=== PATIENT | female | born 1965 | race Caucasian/White ===

== ENCOUNTER 2019-02-02 22:00 | Inpatient (IN) ==
[2019-02-02] MEDS ORDERED: NS 1,000 ML IV ONE (22:20)
[2019-02-02] MEDS ORDERED: TYLENOL PO ONE (22:21)
[2019-02-02] MEDS ORDERED: ZOFRAN IV ONE (22:34)
[2019-02-02 23:03] LABS: BASO# 0.04 X1000 (0.0-0.2); BASO% 0.3 % (0.0-0.8); EOS# 0.03 X1000 (0.0-0.7); EOS% 0.2 % (0.0-10.0); HEMOGLOBIN 15.2 g/dL (12.0-16.0); IMM GRAN# 0.23 X1000 (0.0-0.04); IMM GRAN% 1.6 % (0.0-0.5); LYMPH# 1.44 X1000 (1.2-3.4); LYMPH% 10.1 % (20.5-51.1); MCHC 32.3 g/dL (33-37); MCV 89.7 FL (81-99); MONO# 0.95 X1000 (0.11-0.59); MONO% 6.6 % (1.7-9.3); MPV 10.2 FL (7.4-10.4); NEUT# 11.62 X1000 (1.4-6.5); NEUT% 81.2 % (42.2-75.2); PLT 207 X1000 (130-400); RBC 5.24 XMIL (4.2-5.4); RDW 14.1 % (11.5-14.5); WBC 14.31 X1000 (4.8-10.8)
[2019-02-02 23:25] LABS: AMYLASE 60 U/L (20-200); LIPASE 14 U/L (13-60)
[2019-02-02 23:27] LABS: ALB/GLOB RATIO 1.3; ALBUMIN 4.4 g/dL (3.5-5.0); CREATININE 1.1 mg/dL (0.5-0.9); MAGNESIUM 1.8 mg/dL (1.5-2.7); TOTAL BILIRUBIN 0.41 mg/dL (0.20-1.00); TOTAL PROTEIN 7.7 g/dL (6.3-8.3)
[2019-02-03] MEDS ORDERED: NS 1,000 ML IV ONE (00:47)
[2019-02-03] MEDS ORDERED: PERCOCET-5 PO ONE (02:01)
--- NOTE | 2019-02-03 02:12 | PROVIDER DOCUMENTATION ---
This chart was entered by Katalina Bermeo Scribe, acting as scribe for Salena Rhoades MD. HPI-Abdominal Pain/GI Problem - General Chief Complaint: Nausea/Vomiting Stated Complaint: BOWEL OBSTRUCTION, VOMITING Time Seen by Provider: 02/02/19 22:17 Source: patient Allergies/Adverse Reactions: Patient Allergies Allergy/AdvReac Type Severity Reaction Status Date / Time povidone-iodine Allergy Severe SWELLING Verified 02/03/19 00:39 [From Betadine] soap * [From Betadine] Allergy Severe SWELLING Verified 02/03/19 00:39 adhesive Allergy Intermediate SWELLING Verified 02/03/19 00:39 ciprofloxacin [From Cipro] Allergy Intermediate HEADACHE/VO Verified 02/03/19 00:39 MITING ciprofloxacin HCl * Allergy Intermediate HEADACHE/VO Verified 02/03/19 00:39 [From Cipro] MITING codeine Allergy Intermediate VOMITING Verified 02/03/19 00:39 diazepam [From Valium] Allergy Intermediate VOMITING Verified 02/03/19 00:39 hydrocodone bitartrate * Allergy Intermediate VOMITING Verified 02/03/19 00:39 [From Lortab] metoclopramide HCl * Allergy Intermediate Muscle Verified 02/03/19 00:39 [From Reglan] Jerks morphine Allergy Intermediate VOMITING Verified 02/03/19 00:39 naproxen sodium * Allergy Intermediate NAUSEA/VOMI Verified 02/03/19 00:39 [From Aleve] TING pramipexole di-HCl * Allergy Intermediate SWELLING Verified 02/03/19 00:39 [From Mirapex] Sulfa (Sulfonamide Allergy Intermediate VOMITING Verified 02/03/19 00:39 Antibiotics) [Sulfa(Sulfonamide Antibiotics)] cephalexin monohydrate * Allergy Mild RASH Verified 02/03/19 00:39 [From Keflex] doxycycline Allergy Mild RASH Verified 02/03/19 00:39 nitrofurantoin Allergy Mild RASH Verified 02/03/19 00:39 [From Macrobid] nitrofurantoin Allergy Mild RASH Verified 02/03/19 00:39 macrocrystalline * [From Macrobid] promethazine HCl * Allergy Mild ITCHING Verified 02/03/19 00:39 [From Phenergan] oxybutynin Allergy Unknown RASH Verified 02/03/19 00:39 fentanyl Allergy Unknown Verified 02/03/19 00:39 levofloxacin [From Levaquin] AdvReac Unknown Verified 02/03/19 00:39 piperacillin [From Zosyn] AdvReac Unknown Verified 02/03/19 00:39 tazobactam [From Zosyn] AdvReac Unknown Verified 02/03/19 00:39 Home Medications: Home Medication List Medication Instructions Recorded Confirmed Last Taken Type Levothyroxine [Synthroid] 50 microgm PO QAM 08/22/13 02/02/19 11/02/18 04:30 History Metoprolol Tartrate 50 mg PO QAM 08/22/13 02/02/19 11/02/18 04:30 History Pantoprazole [Protonix] 40 mg PO QAM 08/22/13 02/02/19 11/02/18 04:30 History Amlodipine [Norvasc] 2.5 mg PO HS 01/22/16 02/02/19 11/01/18 22:00 History - History of Present Illness-ABD Nature of Presenting Problems: 53 yof co vomiting starting at [id number], was vomiting up yesterday's food. pt states hard to eat and drink. pt has hx of bowel obstruction and adhesion. pt states "feels like someone turning something in abd." pain is 5/10 in er but pain high when vomiting. pt was tx at [facility] but states they would not fix her problems. pt had sx at [facility] for obstruction and adhesion. pt has hx of htn, ra, thyroid disorder and clotting disorder. pt denies headache, dysuria, cp, and sob. Abdominal Pain Onset Location: reports: epigastric Review of Systems - Adult - REVIEW OF SYSTEMS - ADULT Constitutional: reports: no symptoms reported. denies: chills, fever Eyes: reports: no symptoms reported Ears, Nose, Mouth & Throat: reports: no symptoms reported Cardiovascular: reports: no symptoms reported. denies: chest pain Respiratory: reports: no symptoms reported. denies: shortness of breath Gastrointestinal: reports: see HPI, abdominal pain (epigastric), poor appetite, vomiting. denies: hematemesis, constipation, diarrhea, rectal bleeding Genitourinary: reports: no symptoms reported. denies: dysuria Musculoskeletal: reports: no symptoms reported Integumentary: reports: no symptoms reported Neurological: reports: no symptoms reported Psychiatric: reports: no symptoms reported Endocrine: reports: no symptoms reported Hematologic/Lymphatic: reports: no symptoms reported Allergic/Immunologic: reports: no symptoms reported All Other Systems: Reviewed and Negative Past History - Adult - PAST MEDICAL HISTORY-ADULT Review of Records: reports: Old Records Reviewed, Nursing Assessment Review, Medications Reviewed, Social history reviewed & non-contributory. Major Childhood Illnesses: reports: denies history Cardiovascular: reports: CAD, HTN Respiratory: reports: denies history Gastrointestinal: reports: colitis, GERD Obstetrical/Gynecological: reports: denies history Genitourinary: reports: kidney disease (Watching kidney function) Musculoskeletal: reports: arthritis Neurological: reports: Seizures/Epilepsy (pseudoseizures) Endocrine/Immune: reports: lupus, thyroid disorder (hypothyroidism) Other Conditions: reports: other (thrombophilia) - PRIOR SURGERIES/PROCEDURES Surgical/Procedure History: reports: appendectomy, cholecystectomy (carpel tunnel, bladder tuck, small bowel resection, neck fusion, lipoma R), hysterectomy, , bowel surgery (small bowel resection), back/neck (neck fusion), other (carpel tunnel, bladder tac, lymphoma removed) - IMMUNIZATION STATUS Childhood Immunizations: NUTD Flu Vaccine: NUTD - FAMILY HISTORY Family History: cancer (colon, brain), other (colitis) - SOCIAL HISTORY Smoking: non-smoker Substance Use: none/never Physical Exam-General - PHYSICAL EXAM-ADULT Initial Vital Signs Reviewed: Yes - CONSTITUTIONAL General Appearance: appears well, alert, no apparent distress - EYES Eyes: PERRL/EOMI - HEAD, EARS, NOSE, MOUTH & THROAT HENMT: normocephalic/atraumatic, moist mucous membranes, normal ENT inspection - NECK Neck: non-tender, full range of motion, supple, normal inspection - RESPIRATORY Respiratory: chest non-tender, lungs clear, normal breath sounds - CARDIOVASCULAR Cardiovascular: normal peripheral pulses, regular rate, rhythm - GASTROINTESTINAL (ABDOMEN) Abdominal Exam: normal bowel sounds, soft, no organomegaly, no pulsatile mass, tenderness (epigastric tender to palp). negative: non tender, guarding, rigid, rebound Progress - PLAN OF CARE/RESULTS Progress/Plan/Lab Results: Vital Signs - 8 hr 02/02/19 22:08 Temperature 97.9 F Pulse Rate 79 Respiratory Rate 18 Blood Pressure 134/85 O2 Sat by Pulse Oximetry 98 Laboratory Results - last 24 hr 02/02/19 22:35 WBC 14.31 H RBC 5.24 Hgb 15.2 Hct 47.0 MCV 89.7 MCH 29.0 MCHC 32.3 L RDW Std Deviation 14.1 Plt Count 207 MPV 10.2 Immature Gran % (Auto) 1.6 H Neut % (Auto) 81.2 H Lymph % (Auto) 10.1 L [place] % (Auto) 6.6 Eos % (Auto) 0.2 Baso % (Auto) 0.3 Immature Gran # (Auto) 0.23 H Neut # (Auto) 11.62 H Lymph # (Auto) 1.44 [place] # (Auto) 0.95 H Eos # (Auto) 0.03 Baso # (Auto) 0.04 Orders Category Date Time Status NPO Diet 02/02/19 22:21 Active ABDOMEN FLAT/UPRIGHT [RAD] Stat Exams 02/02/19 22:[address] ABD/PELVIS W/IV CONT ONLY [CT] Stat Exams 02/02/19 23:12 Ordered AMYLASE [CHEM] Stat Lab 02/02/19 22:35 Received CBC WITH ELECTRONIC DIFF [HEME] Stat Lab 02/02/19 22:35 Completed COMPREHENSIVE METABOLIC PANEL [CHEM] Stat Lab 02/02/19 22:35 Received LACTATE, PLASMA [CHEM] Stat Lab 02/02/19 22:20 Uncollected LIPASE [CHEM] Stat Lab 02/02/19 22:35 Received MAGNESIUM [CHEM] Stat Lab 02/02/19 22:35 Received URINALYSIS W/POSS RFLX CULT [URINALYSIS] Stat Lab 02/02/19 22:20 Uncollected 0.9% Sodium Chloride Inj [Ns] 1,000 ml Med 02/02/19 22:20 Discontinued IV 999 mls/hr Acetaminophen [Tylenol] Med 02/02/19 22:21 Discontinued 650 mg PO NOW ONE Ondansetron [Zofran] Med 02/02/19 22:34 Discontinued 4 mg IV NOW ONE Result Diagrams: 02/02/19 22:35 02/02/19 22:35 - CT/MRI 1 CT Study: Abdomen (IMPRESSION: FOCAL DILATED LOOP OF SMALL BOWEL JUST PROXIMAL TO ANASTOMOSIS IN THE MID ABDOMEN MEASURES 4.1 CM. A COMPONENT OF OBSTRUCTION MAY BE PRESENT. SIMILAR APPEARANCE OF THICKENING OF THE DISTAL COLON AND RECTUM WHICH CAN BE SEEN WITH PROCTOCOLITIS. GARY QUINTANA MD.) Departure - Departure Date of Disposition Decision: 02/03/19 Time of Disposition Decision: 02:05 DIAGNOSIS: Small bowel obstruction, Proctocolitis Disposition: ADMITTED INPATIENT 09 Certified Medical Emergency: Emergent Condition: Stable Referrals and Follow-Ups: Jessie Huang MD [Primary Care Provider] - - Critical Care Note This patient required my direct & personal management of CC.: No Attestation - Physician/ ELVIE Attestation Patient care was provided by Advanced Practice Provider:: No The physician spent face to face time with patient:: Yes Advanced Practice Provider documentation review:: Supervising physician onsite and consulted in the evaluation and care of this patient. The physician did have a face to face encounter with the patient. This chart was documented by the indicated scribe, (Katalina Bermeo, Jazmin) and accurately reflects the services I performed and decisions made by me, Odilon Rhoades MD, as attested by the provider's signature.
--- NOTE | 2019-02-03 04:01 | HISTORY AND PHYSICAL ---
PRIMARY CARE PHYSICIAN: Dr. Jessie Huang. CHIEF COMPLAINT: Abdominal pain x2 days. HISTORY OF PRESENT ILLNESS: A 53-year-old female with a history of hypothyroidism, RA, thrombophilia, and iron-deficiency anemia, who presented to emergency department with 2 days history of worsening abdominal pain. The patient described it as sharp, and states that she was having nausea, vomiting with it. She states that she could not hold any food down over the past several days. She was evaluated in the emergency department. She had imaging done which did show small bowel obstruction, as per ER physician. Due to these presenting findings it was thought that she would need hospitalization for further management. At the time of my examination, she had denied any headache, fever, chills, chest pain, shortness of breath, or any recent weight changes, but complained of abdominal pain. PAST MEDICAL HISTORY: Includes hypothyroidism, RA, thrombophilia, iron-deficiency anemia. PAST SURGICAL HISTORY: Bilateral feet surgery, colon resection, cholecystectomy, appendectomy, hysterectomy, cervical fusion. ALLERGIES: Povidone and iodine, sulfa, adhesives, and ciprofloxacin. CURRENT MEDICATIONS INCLUDE: 1. Amlodipine 2.5 mg p.o. at bedtime. 2. Levothyroxine 50 mcg p.o. q.a.m. 3. Metoprolol 50 mg p.o. q.a.m. 4. Pantoprazole 40 mg p.o. every morning. SOCIAL HISTORY: She denies any history of smoking, alcohol or illicit drug use. FAMILY HISTORY: Positive for coronary disease in Father. REVIEW OF SYSTEMS: Fourteen-point review of system as listed in HPI. Other systems negative. PHYSICAL EXAMINATION: GENERAL: Cooperative, friendly female, she is resting comfortably now. VITAL SIGNS: Temperature 97.9 degrees, pulse 79, respiration 18, blood pressure 134/85. HEENT: Atraumatic, normocephalic. Extraocular movements intact. PERRLA. NECK: Supple. CHEST: Clear to auscultation. CARDIOVASCULAR: Regular rhythm. ABDOMEN: Soft, positive bowel sounds. EXTREMITIES: No edema. NEUROLOGIC: She is awake, alert, oriented x3. : No bladder distention. SKIN: Warm. LABORATORIES AND STUDIES: Sodium 144, potassium 4.0, chloride 101, CO2 is 28, BUN is 17, creatinine is 1.1. Glucose is 122. WBCs 14.31, hemoglobin 15.2, hematocrit 47.0, platelets 207,000. ASSESSMENT: This is a 53-year-old female with a history of hypothyroidism, rheumatoid arthritis, thrombophilia, iron-deficiency anemia, and hypertension, who had presented to emergency department with 2 days history of worsening abdominal pain with nausea, vomiting. She was evaluated in the emergency department, she had imaging done which did show a bowel obstruction. Subsequently, she will require admission for further management. ASSESSMENT: 1. Abdominal pain. 2. Suspect a bowel obstruction. 3. Rheumatoid arthritis. 4. Thrombophilia. 5. Hypertension. PLAN: 1. We will admit patient to medical floor with telemetry. 2. Keep patient NPO. Continue with supportive treatment with IV fluids, antiemetics, pain control. 3. We will consult General Surgery. 4. We will hold her home medications for now. 5. We will continue patient on DVT prophylaxis with her home medication. 6. We will continue to follow and reassess, make further recommendation as per her clinical course. cc: Loco Magdaleno MD
--- NOTE | 2019-02-03 05:30 | Diag Imaging Result Doc PS360 ---
EXAM: ABDOMEN FLAT/UPRIGHT HISTORY: HX OF OBSTRUCTION; PRESENT WITH ABD PAIN TECHNIQUE: Flat and upright, two views COMPARISON: None. FINDINGS: No free air beneath the diaphragm. The gallbladder has been removed. Mild scoliosis. Mildly distended small bowel loops in the mid left abdomen. There are sutures in the lower right abdomen. There are several pelvic phleboliths. IMPRESSION: Questionable early or partial small bowel obstruction. Electronically signed by Kyle Connelly 02/03/2019 5:27 AM
[2019-02-03] MEDS: ZOFRAN IV PRN ×2 (07:00→20:21)
[2019-02-03] MEDS: NS 1,000 ML IV SCH ×2 (07:00→16:52)
--- NOTE | 2019-02-03 07:26 | Diag Imaging Result Doc PS360 ---
EXAM: CT ABD/PELVIS W/IV CONT ONLY HISTORY: HX OF MULTIPLE OPEN LAP FOR BOWEL OBSTRUCTION AND TECHNIQUE: CT abdomen and pelvis with intravenous contrast COMPARISON: 02/15/2018 FINDINGS: The gallbladder has been removed. There is fatty infiltration of the liver. Normal spleen, pancreas, adrenal glands, and kidneys. No aortic aneurysm. Mild atherosclerosis. No hydronephrosis. There are sutures in the mid to right abdomen. The small bowel loops just proximal to the anastomotic site are dilated and filled with debris. A small amount of stool is found throughout the colon. Questionable mild thickening to the distal colon. The uterus has been removed. No pelvic mass. Urinary bladder is moderately distended and is normal. IMPRESSION: 1.Possible partial small bowel obstruction near the anastomosis 2.Mild thickening to the distal colon likely due to incomplete distention rather than colitis on the current study 3.Fatty infiltration of the liver 4.Cholecystectomy 5.Hysterectomy 6.A pulmonary report was given at 1:14 AM This exam was performed using automated exposure control, adjustment of mA or kV according to patient size, and/or use of iterative reconstruction technique. Electronically signed by Kyle Connelly 02/03/2019 7:24 AM
--- NOTE | 2019-02-03 10:19 | GENERAL SURGERY CONSULTATION ---
DATE: 02/03/2019 REASON FOR CONSULTATION: Small-bowel obstruction. HISTORY OF PRESENT ILLNESS: This is a 53-year-old female who has had multiple abdominal operations for adhesions and obstructions in the past, who presented to the hospital with a 2-day history of abdominal pain, distention, nausea, and vomiting. She did have some small bowel movements yesterday. She denies exacerbating or relieving factors as well as fever, chills, chest pain, shortness of breath, weight changes. PAST MEDICAL HISTORY: Hypothyroidism, rheumatoid arthritis, thrombophilia, iron deficiency anemia, multiple bowel obstructions. PAST SURGICAL HISTORY: x2, diagnostic laparoscopy with lysis of adhesions, multiple exploratory laparotomies with lysis of adhesions including a small-bowel resection at 1 point. Interestingly, her medical record reports cholecystectomy and appendectomy, but she did not report this to me. ALLERGIES: Povidone, iodine, adhesives, ciprofloxacin, codeine, Valium, Lortab, Reglan, naproxen, morphine, Mirapex, sulfa, Keflex, doxycycline, nitrofurantoin, Phenergan, oxybutynin, fentanyl, Levaquin, Zosyn. HOME MEDICATIONS: Norvasc, Synthroid, Antivert, metoprolol, Protonix. SOCIAL HISTORY: Negative for tobacco, alcohol, or illicit drug use. FAMILY HISTORY: Positive for coronary artery disease. REVIEW OF SYSTEMS: Ten systems reviewed and negative except as noted above. PHYSICAL EXAMINATION: Vital Signs: Temperature 97.7 degrees, pulse 52, respirations 16, blood pressure 134/74, O2 saturation 97%. General: She is alert and oriented x4. She is well developed, well nourished, looks her stated age. HEENT: Normocephalic, atraumatic. Extraocular muscles intact. Pupils equal, round, and reactive to light. Sclerae anicteric. Moist mucous membranes. Neck: Supple, no thyromegaly. Cardiovascular: Regular rate and rhythm. Respiratory: Bilateral equal breath sounds. No work of breathing. Gastrointestinal: Soft, nondistended, mildly tender throughout. No rebound or guarding. No organomegaly or mass. She has a well-healed midline incision and Pfannenstiel incision. No hernias appreciated. Extremities: No clubbing, cyanosis, or edema. Skin: Warm and dry. No rash. Musculoskeletal: Moves all extremities equally and well. LABORATORY DATA: White blood cell count 14,000, hemoglobin 15, hematocrit 47, platelet count 207,000. Electrolytes reviewed and notable for creatinine of 1.1. IMAGING: An abdominal x-ray shows questionable early or partial small-bowel obstruction with some mildly distended small bowel loops in the left mid abdomen. Abdominal pelvis CT scan shows some dilated small bowel loops proximal to an anastomosis. There is a small amount of stool in the colon with questionable mild thickening to the distal colon. ASSESSMENT AND PLAN: A 53-year-old female with recurrent partial small-bowel obstruction, likely secondary to adhesive disease versus anastomotic stricture. She looks stable. I do not think she needs an NG tube at this time. I would keep her on mostly bowel rest and ice chips and IV fluids and repeat physical exam and imaging in the morning. cc: Gregg Tirado MD
[2019-02-03] MEDS ORDERED: MINERAL OIL PO ONE (10:45)
[2019-02-03 10:48] LABS: URINE SOURCE CLEAN CATCH
[2019-02-03 11:20] LABS: BILIRUBIN URINE NEGATIVE (NEGATIVE); BLOOD URINE NEGATIVE (NEGATIVE); COLOR STRAW; GLUCOSE URINE NEGATIVE (NEGATIVE); KETONE URINE NEGATIVE (NEGATIVE); LEUKOCYTES URINE NEGATIVE (NEGATIVE); NITRITE URINE NEGATIVE (NEGATIVE); PROTEIN URINE NEGATIVE (NEGATIVE); SP GRAVITY URINE 1.025; TURBIDITY URINE CLEAR (CLEAR); UROBILINOGEN URINE NORMAL (NORMAL)
[2019-02-03 11:22] LABS: UR EPITHELIAL CELLS <10 /HPF (<10); URINE BACTERIA NEGATIVE /HPF; URINE RBC <10 /HPF (<10); URINE WBC <10 /HPF (<10)
[2019-02-03] MEDS ORDERED: DILAUDID IV ONE (15:34)
[2019-02-03] MEDS: NORVASC PO SCH (20:20)
[2019-02-03] MEDS: MILK OF MAGNESIA PO SCH (20:25)
[2019-02-04] MEDS ORDERED: DILAUDID IV ONE (02:18)
[2019-02-04] MEDS: NS 1,000 ML IV SCH (03:04)
[2019-02-04] MEDS: ZOFRAN IV PRN ×4 (03:07→21:48)
[2019-02-04] MEDS: SYNTHROID PO SCH ×2 (05:52→07:45)
[2019-02-04 06:34] LABS: BASO# 0.04 X1000 (0.0-0.2); BASO% 0.5 % (0.0-0.8); EOS# 0.08 X1000 (0.0-0.7); EOS% 0.9 % (0.0-10.0); HEMATOCRIT 42.7 % (37.0-47.0); HEMOGLOBIN 13.6 g/dL (12.0-16.0); IMM GRAN# 0.13 X1000 (0.0-0.04); IMM GRAN% 1.5 % (0.0-0.5); LYMPH# 2.41 X1000 (1.2-3.4); LYMPH% 28.2 % (20.5-51.1); MCH 29.2 PG (27-31); MCHC 31.9 g/dL (33-37); MCV 91.8 FL (81-99); MONO# 0.52 X1000 (0.11-0.59); MONO% 6.1 % (1.7-9.3); MPV 10.2 FL (7.4-10.4); NEUT# 5.38 X1000 (1.4-6.5); NEUT% 62.8 % (42.2-75.2); PLT 183 X1000 (130-400); RBC 4.65 XMIL (4.2-5.4); RDW 14.2 % (11.5-14.5); WBC 8.56 X1000 (4.8-10.8)
[2019-02-04 07:03] LABS: AGAP 12; BUN 11 mg/dL (8-22); CALCIUM 8.7 mg/dL (8.8-10.2); CHLORIDE 104 mmol/L (98-107); COSMO 286; CREATININE 0.9 mg/dL (0.5-0.9); ESTIMATED GFR > 60; GLUCOSE 100 mg/dL (70-104); POTASSIUM 4.1 mmol/L (3.5-5.1); SODIUM 144 mmol/L (136-145); TCO2 28 mmol/L (25-35)
[2019-02-04] MEDS: PRILOSEC PO SCH ×2 (07:45→10:16)
--- NOTE | 2019-02-04 07:51 | Diag Imaging Result Doc PS360 ---
ABDOMEN FLAT/UPRIGHT - 02/04/2019 INDICATION: sbo COMPARISON: 02/02/2019 FINDINGS: Stable surgical clips in the right upper quadrant and surgical suture lines in the right lower quadrant. No bowel obstruction or free air. No constipation. IMPRESSION: No acute disease. Electronically signed by Noel Sinha 02/04/2019 7:49 AM
[2019-02-04] MEDS: LOPRESSOR PO SCH (10:13)
--- NOTE | 2019-02-04 11:00 | GENERAL SURGERY PROGRESS NOTE ---
DATE: 02/04/2019 SUBJECTIVE: The patient has intermittent abdominal pain, no vomiting. She has passed some gas. OBJECTIVE: She is afebrile. Vital signs are stable.General: She is awake, alert, and oriented x3. No acute distress. Gastrointestinal: Soft, nondistended, mildly tender. No rebound or guarding. She does have bowel sounds. IMAGING: Abdominal flat and upright x-ray from this morning shows no obstructive gas pattern. ASSESSMENT AND PLAN: A 53-year-old female with partial small-bowel obstruction that appears to be improved, if not resolved. We will start her on a clear liquid diet today and observe her tolerance of this. cc: Gregg Tirado MD
--- NOTE | 2019-02-04 12:33 | PROGRESS NOTE ---
DATE: 02/04/2019 SUBJECTIVE: The patient is resting in bed. OBJECTIVE: Vital signs: Temperature 97.6 degrees, pulse 56, respirations 18, blood pressure 120/66, oxygen saturation 100%. HEENT: Atraumatic, normocephalic. Cardiovascular: S1, S2. Respiratory: Has evidence of good air entry bilaterally. Abdomen: Soft, nontender. No masses felt. Extremities: No evidence of edema. Central nervous system: No obvious focal deficit noted. LABS: WBC is 8.56, hematocrit is 42.7, with a platelet count of 183,000. Sodium is 144, potassium 4.1, chloride is 104, bicarb is 28, BUN is 11, creatinine 0.9. Abdominal x-ray: No acute disease. ASSESSMENT AND PLAN: 1. Probable small bowel obstruction. This seems to have resolved. Agree with starting the patient on liquid diet and observing her. 2. Hypertension. Continue current antihypertensive regimen. 3. Hypothyroidism. Continue levothyroxine. 4. History of rheumatoid arthritis. Aware. 5. History of thrombophilia. Aware. 6. Deep vein thrombosis prophylaxis. Sequential compression devices. 7. Gastrointestinal prophylaxis. Proton pump inhibitor. cc: Riley Lua MD
[2019-02-04] MEDS ORDERED: MAALOX PLUS LIQUID PO PRN (13:03)
[2019-02-04] MEDS: MILK OF MAGNESIA PO SCH ×2 (13:11→21:40)
[2019-02-04] MEDS: TYLENOL PO PRN (17:11)
[2019-02-04] MEDS: NORVASC PO SCH (21:40)
[2019-02-05] MEDS: TYLENOL PO PRN (01:18)
[2019-02-05] MEDS: PRILOSEC PO SCH (06:18)
[2019-02-05] MEDS: SYNTHROID PO SCH (06:18)
[2019-02-05] MEDS: ZOFRAN IV PRN ×3 (08:32→22:38)
[2019-02-05] MEDS: LOPRESSOR PO SCH (08:32)
[2019-02-05] MEDS: MILK OF MAGNESIA PO SCH ×3 (08:32→22:35)
--- NOTE | 2019-02-05 16:35 | PROGRESS NOTE ---
DATE: 02/05/2019 SUBJECTIVE: This morning, Ms. Díaz refers to be feeling a lot better, still has some lower abdominal discomfort, but she seems to be tolerating her clear liquids. OBJECTIVE: Vital signs: Blood pressure is 115/71, pulse is 52, respiration is 20, temperature is 98.0 degrees, patient was saturating 100% on room air. General: Ms. Díaz is a 53-year-old female. She is in bed, no distress. Mucosa is pink and moist. Anicteric. Acyanotic. Neck is supple. Chest was clear to auscultation. There were no crepitations, no rhonchi. Cardiovascular: Regular rate and rhythm. No murmurs, no rubs, no gallops. Gastrointestinal: Abdomen is soft. It is minimally tender in the lower abdomen, but there is no guarding, no rebound. There is an old supra- and infraumbilical surgical midline scar. Extremities: No pedal edema. Central Nervous System: Patient is awake, alert, and oriented. LABORATORY DATA: None for today. PATIENT MEDICATIONS: Have all been reviewed. ASSESSMENT: 1. Partial small bowel obstruction. This seems to be getting better. Patient is tolerating clears. We will continue this and follow up with further recommendations from Surgery. 2. History of Factor V Leiden deficiency. The patient is on chronic Arixtra injection. We will restart her on that. 3. Hypothyroidism. We will continue with levothyroxine. 4. Pernicious anemia. 5. Chronic iron deficiency anemia. The patient gets regular iron infusions. 6. Mild transaminitis, likely due to steatohepatitis from fatty liver disease. In general, I think Ms. Díaz seems to be doing better. She has had multiple abdominal surgeries in the past. We think the small partial obstruction is due to adhesions. This seems to be getting better. We are going to continue with the clears and follow up with further recommendations from Surgery. cc: Lefty Dooley MD
--- NOTE | 2019-02-05 18:08 | GENERAL SURGERY PROGRESS NOTE ---
DATE: 02/05/2019 SUBJECTIVE: The patient is feeling better. Less pain. Still has some nausea but tolerating liquids. She has passed some gas. OBJECTIVE: Vital signs: She is afebrile. Vital signs are stable. General: She is awake, alert, oriented x3. No acute distress. GI: Soft, nontender, nondistended. Good bowel sounds. ASSESSMENT AND PLAN: This is a 53-year-old female with partial small bowel obstruction that appears to be improving. I will advance her to a soft diet. We will monitor her progress overnight. She may be able to go home tomorrow. cc: Gregg Tirado MD
[2019-02-05] MEDS: NORVASC PO SCH (22:35)
[2019-02-05] MEDS: COLACE PO SCH (22:38)
[2019-02-06] MEDS: PRILOSEC PO SCH ×2 (05:11→06:49)
[2019-02-06] MEDS: SYNTHROID PO SCH ×2 (05:11→06:49)
[2019-02-06] MEDS: ZOFRAN IV PRN ×2 (05:20→09:00)
--- NOTE | 2019-02-06 07:59 | Diag Imaging Result Doc PS360 ---
EXAM: KUB ABDOMEN INDICATION: SBO TECHNIQUE: One view COMPARISON: 02/04/2019 FINDINGS: The small amount of small bowel gas seen on the previous study has decreased further. There is only trace small bowel gas in the left upper quadrant on the current study without significant distention. On the current study, there is nothing that would necessarily suggest a significant bowel obstruction. The abdomen is stable, otherwise. IMPRESSION: Interval improvement in the already mild small bowel gas distention. Electronically signed by Wilmer Bermeo 02/06/2019 7:57 AM
[2019-02-06] MEDS: LOPRESSOR PO SCH (08:57)
[2019-02-06] MEDS: COLACE PO SCH (08:57)
[2019-02-06] MEDS: MILK OF MAGNESIA PO SCH (08:57)
[2019-02-06] MEDS ORDERED: ARIXTRA SUBQ SCH (09:00)
[2019-02-06 13:52] VITALS: BP 140/70
--- NOTE | 2019-02-06 14:27 | GENERAL SURGERY PROGRESS NOTE ---
DATE: 02/06/2019 SUBJECTIVE: The patient is doing better. She is eating, and has had a bowel movement and passing gas. She still has intermittent left-sided abdominal pain, especially after eating. OBJECTIVE: She is afebrile. Vital signs are stable. General: She is awake, alert, and oriented x3. No acute distress. Gastrointestinal: Soft, nontender, nondistended. She has good bowel sounds. Imaging: The abdominal film shows no obstruction. ASSESSMENT/PLAN: A 53-year-old female with partial small-bowel obstruction that is resolving. She can be discharged home. I have encouraged mineral oil daily for the next 2 weeks to encourage regular bowel movements. She understands and will follow up with me as needed. cc: Gregg Tirado MD
--- NOTE | 2019-02-07 04:51 | DISCHARGE SUMMARY ---
ADMISSION DATE: 02/02/2019 DISCHARGE DATE: 02/06/2019 This is MARQUITA Mullins dictating for Dr. Lefty Dooley MD. DIAGNOSES: 1. Partial small bowel obstruction, resolved. 2. History of factor V Leiden, on chronic Arixtra injections. 3. Hypothyroidism. 4. Pernicious anemia. 5. Chronic iron deficiency anemia. 6. Mild transaminitis due to steatohepatitis from fatty liver disease. CONSULTATIONS: Dr. Gregg Tirado of General Surgery. DIAGNOSTICS: 1. On 02/02/2019, abdominal x-ray revealed questionable early or partial small-bowel obstruction. 2. CT of the abdomen and pelvis revealed partial small bowel obstruction near the anastomosis, mild thickening to the distal colon likely due to incomplete distention rather than colitis, fatty infiltration of the liver, cholecystectomy, and hysterectomy. 3. On 02/04/2019, abdominal x-ray revealed no acute disease, no bowel obstruction or free air, no constipation. 4. On 02/06/2019, abdominal x-ray reveals interval improvement in the already mild small bowel gas distention. HOSPITAL COURSE: Ms. Díaz presented to the emergency room complaining of 2 days of abdominal pain. She was found to have a partial small bowel obstruction. She was admitted and initially she was NPO, given IV fluids, antiemetics and pain control. We consulted General Surgery and they followed along, luckily the small-bowel obstruction resolved. She tolerated a GI soft diet with no abdominal pain, nausea or vomiting. She was passing gas. DISCHARGE VITAL SIGNS: Blood pressure is 140/70, with a heart rate of 68, respirations 18, temperature 97.9 degrees, with room air sats 100%. DISCHARGE PHYSICAL EXAMINATION: Cardiovascular: Regular rate and rhythm. S1 and S2 appreciated. Pulmonary: Breath sounds are clear. No increased work of breathing noted. Gastrointestinal: Abdomen was soft, nontender and nondistended with bowel sounds in all 4 quadrants. Skin: Warm and dry with no rashes or lesions noted. Neurologic: She is alert and oriented. DISCHARGE MEDICATIONS: 1. Antivert 25 mg p.o. p.r.n. 2. Arixtra 7.5 mg subcutaneous as directed. 3. Metoprolol tartrate 50 mg p.o. q.a.m. 4. Norvasc 2.5 p.o. at bedtime. 5. Protonix 40 mg daily. 6. Synthroid 50 mcg daily. 7. Colace 100 mg p.o. b.i.d. 8. Milk of magnesia 30 mL b.i.d. p.r.n. constipation. FOLLOW-UP: Dr. Jessie Huang, 02/12/2019 at 8:30 a.m., Celestino Ortiz as needed. DISCHARGE INSTRUCTIONS: She is instructed to return to the emergency room or call to be seen sooner for any chest pain, palpitations, shortness of breath, temperature greater than 101, any cough, fever, chills, any black or bloody vomitus or stools, any diarrhea or constipation, or for any questions or concerns that she may have. DISPOSITION: She is being discharged home in stable condition with family members. TIME SPENT: This is a greater than 30 minute discharge. Dictated by MARQUITA Mullins for Lefty Dooley MD This chart was documented by, MARQUITA Mullins and accurately reflects the services performed, treatment plan and medical decisions as attested by the providers signature Lefty Dooley MD. cc: MARQUITA Mullins MD
== END 2019-02-06 14:07 | disposition home or self-care (01) | DRG 389 ==
LOC: ED 22:00 → SUATTDRO 02-03 04:21 → 4N 02-03 04:21
PROVIDERS: ATTEND Internal Medicine
CPT/HCPCS: 74000; 74018; 74019; 74020; 74177; 80048; 80053; 81001; 82150; 83605; 83690; 83735; 85025; 96374; 99285; A9270; J1170; J1652; J2405; J7030; Q9967

== ENCOUNTER 2019-09-01 19:26 | Inpatient (IN) ==
[2019-09-01 20:00] LABS: BASO# 0.05 X1000 (0.0-0.2); BASO% 0.4 % (0.0-0.8); EOS# 0.08 X1000 (0.0-0.7); EOS% 0.7 % (0.0-10.0); HEMATOCRIT 46.1 % (37.0-47.0); HEMOGLOBIN 15.2 g/dL (12.0-16.0); IMM GRAN% 0.9 % (0.0-0.5); LYMPH# 2.22 X1000 (1.2-3.4); LYMPH% 19.4 % (20.5-51.1); MCH 29.6 PG (27-31); MCV 89.9 FL (81-99); MONO# 0.67 X1000 (0.11-0.59); MONO% 5.9 % (1.7-9.3); MPV 9.8 FL (7.4-10.4); NEUT# 8.32 X1000 (1.4-6.5); NEUT% 72.7 % (42.2-75.2); PLT 229 X1000 (130-400); RBC 5.13 XMIL (4.2-5.4); WBC 11.44 X1000 (4.8-10.8)
[2019-09-01 20:03] LABS: URINE SOURCE CLEAN CATCH
[2019-09-01 20:12] LABS: BILIRUBIN URINE NEGATIVE (NEGATIVE); BLOOD URINE NEGATIVE (NEGATIVE); COLOR YELLOW; GLUCOSE URINE NEGATIVE (NEGATIVE); KETONE URINE NEGATIVE (NEGATIVE); LEUKOCYTES URINE NEGATIVE (NEGATIVE); NITRITE URINE NEGATIVE (NEGATIVE); PH URINE 6.5; PROTEIN URINE TRACE mg/dL (NEGATIVE); SP GRAVITY URINE 1.011; TURBIDITY URINE CLEAR (CLEAR); UROBILINOGEN URINE NORMAL (NORMAL)
[2019-09-01 20:13] LABS: UR EPITHELIAL CELLS <10 /HPF (<10); URINE BACTERIA NEGATIVE /HPF; URINE RBC <10 /HPF (<10); URINE WBC <10 /HPF (<10)
[2019-09-01 20:18] LABS: ALB/GLOB RATIO 1.5; ALBUMIN 4.9 g/dL (3.5-5.0); CALCIUM 9.8 mg/dL (8.8-10.2); POTASSIUM 3.7 mmol/L (3.5-5.1); TOTAL BILIRUBIN 0.43 mg/dL (0.20-1.00); TOTAL PROTEIN 8.2 g/dL (6.3-8.3)
[2019-09-01] MEDS ORDERED: BENTYL IM ONE (21:40)
[2019-09-01] MEDS ORDERED: ZOFRAN ODT PO ONE (21:40)
[2019-09-02] MEDS ORDERED: MORPHINE IV ONE (01:00)
--- NOTE | 2019-09-02 01:30 | PROVIDER DOCUMENTATION ---
This chart was entered by Katalina Bermeo Scribe, acting as scribe for Chinedu Ching MD. HPI-Abdominal Pain/GI Problem - General Chief Complaint: Abdominal Pain Stated Complaint: VOMITING, SEVERE ABD PAIN(HX OF OBSTRUCTIONS) Time Seen by Provider: 09/01/19 21:22 Source: patient Allergies/Adverse Reactions: Patient Allergies Allergy/AdvReac Type Severity Reaction Status Date / Time povidone-iodine Allergy Severe SWELLING Verified 02/03/19 00:39 [From Betadine] soap * [From Betadine] Allergy Severe SWELLING Verified 02/03/19 00:39 adhesive Allergy Intermediate SWELLING Verified 02/03/19 00:39 ciprofloxacin [From Cipro] Allergy Intermediate HEADACHE/VO Verified 02/03/19 00:39 MITING ciprofloxacin HCl * Allergy Intermediate HEADACHE/VO Verified 02/03/19 00:39 [From Cipro] MITING codeine Allergy Intermediate VOMITING Verified 02/03/19 00:39 diazepam [From Valium] Allergy Intermediate VOMITING Verified 02/03/19 00:39 hydrocodone bitartrate * Allergy Intermediate VOMITING Verified 02/03/19 00:39 [From Lortab] metoclopramide HCl * Allergy Intermediate Muscle Verified 02/03/19 00:39 [From Reglan] Jerks morphine Allergy Intermediate VOMITING Verified 02/03/19 00:39 naproxen sodium * Allergy Intermediate NAUSEA/VOMI Verified 02/03/19 00:39 [From Aleve] TING pramipexole di-HCl * Allergy Intermediate SWELLING Verified 02/03/19 00:39 [From Mirapex] Sulfa (Sulfonamide Allergy Intermediate VOMITING Verified 02/03/19 00:39 Antibiotics) [Sulfa(Sulfonamide Antibiotics)] cephalexin monohydrate * Allergy Mild RASH Verified 02/03/19 00:39 [From Keflex] doxycycline Allergy Mild RASH Verified 02/03/19 00:39 nitrofurantoin Allergy Mild RASH Verified 02/03/19 00:39 [From Macrobid] nitrofurantoin Allergy Mild RASH Verified 02/03/19 00:39 macrocrystalline * [From Macrobid] promethazine HCl * Allergy Mild ITCHING Verified 02/03/19 00:39 [From Phenergan] oxybutynin Allergy Unknown RASH Verified 02/03/19 00:39 fentanyl Allergy Unknown Verified 02/03/19 00:39 levofloxacin [From Levaquin] AdvReac Unknown Verified 02/03/19 00:39 piperacillin [From Zosyn] AdvReac Unknown Verified 02/03/19 00:39 tazobactam [From Zosyn] AdvReac Unknown Verified 02/03/19 00:39 Home Medications: Home Medication List Medication Instructions Recorded Confirmed Last Taken Type Levothyroxine [Synthroid] 50 microgm PO QAM 08/22/13 09/01/19 02/02/19 History Metoprolol Tartrate 50 mg PO QAM 08/22/13 09/01/19 02/02/19 History Pantoprazole [Protonix] 80 mg PO QAM 08/22/13 09/01/19 02/02/19 History Amlodipine [Norvasc] 2.5 mg PO HS 01/22/16 09/01/19 02/02/19 History Mineral Oil 30 ml PO DAILY PRN #300 oil 02/06/19 09/01/19 Unknown Rx - History of Present Illness-ABD Nature of Presenting Problems: 54 yowf c/o sharp periumbilical abd pain, n/v, chills since yest and becoming worse today. pt has hx of small bowel obstruction in January this yr. pt has had some rectal bleeding that has resolved, pt has hx of anal fissures. pt has had no flatulence. pt requests abd CT. pt last BM was yest. Abdominal Pain Onset Location: reports: periumbilical Pain Radiation: reports: no radiation Quality of Pain: reports: sharp Severity in ED: reports: mild Onset/Duration: reports: other (yest) Timing: reports: still present Activities at Onset: reports: none Review of Systems - Adult - REVIEW OF SYSTEMS - ADULT Constitutional: reports: no symptoms reported. denies: chills, fever, fatique Eyes: reports: no symptoms reported Ears, Nose, Mouth & Throat: reports: no symptoms reported Cardiovascular: reports: no symptoms reported Respiratory: reports: no symptoms reported Gastrointestinal: reports: see HPI, abdominal pain, nausea, rectal bleeding (resolved), vomiting. denies: diarrhea, difficulty swallowing, frequent heartburn Genitourinary: reports: no symptoms reported Musculoskeletal: reports: no symptoms reported Integumentary: reports: no symptoms reported Neurological: reports: no symptoms reported Psychiatric: reports: no symptoms reported Endocrine: reports: no symptoms reported Hematologic/Lymphatic: reports: no symptoms reported Allergic/Immunologic: reports: no symptoms reported All Other Systems: Reviewed and Negative Past History - Adult - PAST MEDICAL HISTORY-ADULT Review of Records: reports: Nursing Assessment Review, Medications Reviewed, Social history reviewed & non-contributory. Major Childhood Illnesses: reports: denies history Cardiovascular: reports: CAD, HTN Respiratory: reports: denies history Gastrointestinal: reports: colitis, GERD, other (small bowel obstructio january 2019) Obstetrical/Gynecological: reports: denies history Genitourinary: reports: kidney disease (Watching kidney function) Musculoskeletal: reports: arthritis Neurological: reports: Seizures/Epilepsy (pseudoseizures) Endocrine/Immune: reports: lupus, thyroid disorder (hypothyroidism) Other Conditions: reports: other (thrombophilia) - PRIOR SURGERIES/PROCEDURES Surgical/Procedure History: reports: appendectomy, cholecystectomy (carpel tunnel, bladder tuck, small bowel resection, neck fusion, lipoma R), hysterectomy, , bowel surgery (small bowel resection), back/neck (neck fusion), other (carpel tunnel, bladder tac, lymphoma removed) - IMMUNIZATION STATUS Childhood Immunizations: NUTD Flu Vaccine: NUTD - FAMILY HISTORY Family History: cancer (colon, brain), other (colitis) - SOCIAL HISTORY Smoking: non-smoker Substance Use: none/never Physical Exam-General - PHYSICAL EXAM-ADULT Initial Vital Signs Reviewed: Yes - CONSTITUTIONAL General Appearance: appears well, alert, no apparent distress - EYES Eyes: PERRL/EOMI, pink conjunctivae - HEAD, EARS, NOSE, MOUTH & THROAT HENMT: normocephalic/atraumatic, moist mucous membranes, normal ENT inspection - NECK Neck: non-tender, full range of motion, supple, normal inspection - RESPIRATORY Respiratory: chest non-tender, lungs clear, normal breath sounds - CARDIOVASCULAR Cardiovascular: normal peripheral pulses, regular rate, rhythm - GASTROINTESTINAL (ABDOMEN) Abdominal Exam: normal bowel sounds, soft, no organomegaly, no pulsatile mass, tenderness (to palp periumbilical). negative: non tender, distended, rigid, rebound - LYMPHATIC Lymphatic: no adenopathy - MUSCULOSKELETAL Back Exam: normal inspection, no CVA tenderness, no vertebral tenderness Extremity: normal range of motion, non-tender, normal inspection Peripheral Pulses: radial (R): 2+, radial (L): 2+ - SKIN Integumentary: normal color, normal turgor, warm/dry - NEUROLOGIC Neurologic: grossly normal, no motor/sensory deficits - PSYCHIATRIC Psych/Mental Status: normal mood/affect, normal thought content, normal thought process, oriented x 3 Progress - PLAN OF CARE/RESULTS Progress/Plan/Lab Results: Vital Signs - 8 hr 09/01/19 19:35 Temperature 98.0 F Pulse Rate 72 Respiratory Rate 18 Blood Pressure 156/91 O2 Sat by Pulse Oximetry 98 Laboratory Results - last 24 hr 09/01/19 09/01/19 09/01/19 19:40 19:40 19:49 WBC 11.44 H RBC 5.13 Hgb 15.2 Hct 46.1 MCV 89.9 MCH 29.6 MCHC 33.0 RDW Std Deviation 13.0 Plt Count 229 MPV 9.8 Immature Gran % (Auto) 0.9 H Neut % (Auto) 72.7 Lymph % (Auto) 19.4 L [place] % (Auto) 5.9 Eos % (Auto) 0.7 Baso % (Auto) 0.4 Immature Gran # (Auto) 0.10 H Neut # (Auto) 8.32 H Lymph # (Auto) 2.22 [place] # (Auto) 0.67 H Eos # (Auto) 0.08 Baso # (Auto) 0.05 Sodium 139 Potassium 3.7 Chloride 96 L Carbon Dioxide 27 Anion Gap 16 BUN 16 Creatinine 1.0 H Estimated GFR/1.73 m2 58 BUN/Creatinine Ratio 16 Glucose 106 H Calculated Osmolality 279 Calcium 9.8 Total Bilirubin 0.43 AST 35 H ALT 32 Alkaline Phosphatase 88 Total Protein 8.2 Albumin 4.9 Globulin 3.3 Albumin/Globulin Ratio 1.5 Amylase 65 Lipase 16 Urine Source CLEAN CATCH Urine Color YELLOW Urine Turbidity CLEAR Urine pH 6.5 Ur Specific Lyle 1.011 Urine Protein TRACE A Ur Glucose (Stick) NEGATIVE Ur Ketones (Stick) NEGATIVE Urine Blood NEGATIVE Urine Nitrite NEGATIVE Urine Bilirubin NEGATIVE Urobilinogen Dipstick NORMAL Urine Leukocytes NEGATIVE Urine WBC (Auto) <10 Urine RBC (Auto) <10 U Epithel Cells (Auto) <10 Urine Bacteria (Auto) NEGATIVE Orders Category Date Time Status NPO Diet 09/01/19 19:[address] ABD/PELVIS W/IV CONT ONLY [CT] Stat Exams 09/01/19 21:36 Ordered AMYLASE [CHEM] Stat Lab 09/01/19 19:40 Completed CBC WITH ELECTRONIC DIFF [HEME] Stat Lab 09/01/19 19:40 Completed COMPREHENSIVE METABOLIC PANEL [CHEM] Stat Lab 09/01/19 19:40 Completed LIPASE [CHEM] Stat Lab 09/01/19 19:40 Completed URINALYSIS W/POSS RFLX CULT [URINALYSIS] Stat Lab 09/01/19 19:49 Completed Proceed to admit with Dr. Magdaleno hospitalist for early small bowel obstruction. Spoke to Dr. Tirado general surgery about SBO and no need for NG tube tonight. No peritoneal signs. Given pain medications and IV fluids. Result Diagrams: 09/01/19 19:40 09/01/19 19:40 - CT/MRI 1 CT Study: Abdomen Impression: See EMR Report (Impression per [facility]: 1. Probable early small bowel obstruction near right midabdominal anastomotic site and within left mid abdominal loops due to internal hernia versus adhesion. Trace mesentery fatty stranding and fluid adjacent to left midabdominal loops. Short term follow up suggested. There is moderate colonic fluid and stool. 2. Cholecystectomy. Hysterectomy. Hepatic steatosis.) - CONSULTS/PCP/HOSPITALIST Notification #1 *Consult/PCP/Hospitalist*: Dr. Magdaleno Time Discussed: 01:01 Consult Disposition: Admit Departure - Departure Date of Disposition Decision: 09/02/19 Time of Disposition Decision: : DIAGNOSIS: Small bowel obstruction Disposition: ADMITTED INPATIENT 09 Certified Medical Emergency: Emergent Condition: Fair Referrals and Follow-Ups: Jessie Huang MD [Primary Care Provider] - - Critical Care Note This patient required my direct & personal management of CC.: No Attestation - Physician/ ELVIE Attestation Patient care was provided by Advanced Practice Provider:: No The physician spent face to face time with patient:: Yes Advanced Practice Provider documentation review:: Supervising physician onsite and consulted in the evaluation and care of this patient. The physician did have a face to face encounter with the patient. This chart was documented by the indicated scribe, (Katalina Bermeo Scribe) and accurately reflects the services I performed and decisions made by me, Chinedu Ching MD, as attested by the provider's signature.
[2019-09-02] MEDS: SODIUM CHLORIDE 0.9% INJ ONE ×2 (02:01)
[2019-09-02] MEDS: PHENERGAN IV ONE ×2 (02:01→02:30)
--- NOTE | 2019-09-02 02:36 | HISTORY AND PHYSICAL ---
PRIMARY CARE PHYSICIAN: Dr. Jessie Huang. CHIEF COMPLAINT: Abdominal pain x3 days. HISTORY OF PRESENTING ILLNESS: A 54-year-old female with a history of hypothyroidism, hypertension, rheumatoid arthritis, gastroparesis and thrombophilia, who had presented to the emergency department with 3 days history of having persistent abdominal pain. She described it as cramping and she states that she had nausea and vomiting. She was evaluated in the emergency department. She had imaging done which did show a small bowel obstruction near the right mid abdominal anastomotic site. Her case was discussed with General Surgery who recommended admission for further management. At the time of my examination, patient denied any headache, fever, chills, chest pain, shortness of breath or any weight changes, but complained of abdominal pain. PAST MEDICAL HISTORY: Includes hypothyroidism, hypertension, rheumatoid arthritis, tremors, gastroparesis, thrombophilia, iron-deficiency anemia. PAST SURGICAL HISTORY: Bowel resection, hysterectomy, cataract, cholecystectomy, appendectomy bilateral feet surgery. ALLERGIES: Povidine, iodine, adhesives, ciprofloxacin. CURRENT MEDICATIONS: Amlodipine 2.5 mg p.o. at bedtime, levothyroxine 50 mcg p.o. q.a.m., metoprolol 50 mg p.o. q.a.m., pantoprazole 80 mg p.o. q.a.m. SOCIAL HISTORY: No history of smoking, alcohol or illicit drug use. FAMILY HISTORY: Positive for coronary artery disease in father. REVIEW OF SYSTEMS: Fourteen point review of system as listed in HPI. Other systems negative. PHYSICAL EXAMINATION: GENERAL: Cooperative, friendly female. She is resting more comfortably now. VITAL SIGNS: Temperature 98.0 degrees, pulse 72, respiration 18, blood pressure 156/91. HEENT: Atraumatic, normocephalic. Extraocular movements intact. PERRLA. NECK: No masses. CHEST: Clear to auscultation. CARDIOVASCULAR: Regular rate and rhythm. ABDOMEN: Soft, diffuse tenderness. EXTREMITIES: No edema. NEUROLOGIC: She is awake, alert, oriented x3. GENITOURINARY: No bladder distention. SKIN: Warm. LABORATORIES AND STUDIES: WBCs 11.44, hemoglobin 15.2, hematocrit 46.1, platelets 229,000. Sodium 139, potassium 3.7, chloride 96, CO2 is 27, BUN is 16, creatinine is 1.0, glucose is 106. CT of the abdomen and pelvis shows early small bowel obstruction near the right mid abdominal anastomotic site. ASSESSMENT: This is a 54-year-old female with a history of hypothyroidism, hypertension, thrombophilia, who had presented to the emergency department with 3 days history of worsening abdominal pain with nausea and vomiting. She was brought in the emergency department. She had imaging done which did show a small bowel obstruction. Subsequently, she will need admission for further management. 1. Small bowel obstruction. 2. Hypertension. 3. Hypothyroidism. 4. Thrombophilia. PLAN: 1. We will admit patient to medical floor with telemetry. 2. We will keep patient NPO. Continue supportive treatment IV fluids, antiemetics, pain control. 3. General Surgery has already been consulted. 4. We will monitor blood pressure closely and resume antihypertensive agent. 5. We will check a thyroid profile. 6. We will start her anticoagulation once cleared by Surgery. 7. We will continue to follow, and reassess and make further recommendation based on patient's clinical course. cc: Loco Magdaleno MD
[2019-09-02] MEDS: SODIUM CHLORIDE 0.9% INJ SCH (03:18)
[2019-09-02] MEDS: PROTONIX IV SCH (03:18)
[2019-09-02] MEDS: NS 1,000 ML IV SCH ×3 (03:18→23:18)
[2019-09-02] MEDS: ZOFRAN IV PRN ×4 (03:27→23:06)
[2019-09-02] MEDS: SYNTHROID PO SCH (06:46)
--- NOTE | 2019-09-02 07:27 | Diag Imaging Result Doc PS360 ---
EXAM: CT ABD/PELVIS W/IV CONT ONLY INDICATION: abdominal pain TECHNIQUE: This exam was performed using automated exposure control, adjustment of mA or kV according to patient size, and/or use of iterative reconstruction technique. COMPARISON: 05/03/2019 FINDINGS: There has been a prior cholecystectomy. There is suggestion of mild hepatic steatosis. There is a stable small low dense right adrenal nodule, statistically most likely an adenoma. The kidneys and urinary bladder are unremarkable. There has been a prior hysterectomy. There is a surgical anastomosis associated with a loop of small bowel at the right mid abdomen. There are several fluid-filled loops of small bowel with mild distention. There also loops of small bowel in the left mid abdomen that exhibit mild wall thickening and surrounding fat stranding. This is suspicious for an early bowel obstruction. Consider obstruction related to adhesions were internal hernia. The remainder of the GI tract is essentially unremarkable. No free abdominal gas is appreciated. There is no evidence of acute osseous abnormality. IMPRESSION: Several mildly distended loops of small bowel and a few loops of small bowel exhibiting surrounding fat stranding and minor wall thickening at the left mid abdomen. This is suspicious for early obstruction, possibly due to an adhesion or internal hernia. Electronically signed by Wilmer Bermeo 09/02/2019 7:23 AM
[2019-09-02] MEDS ORDERED: MINERAL OIL PO SCH (09:00)
[2019-09-02] MEDS: MILK OF MAGNESIA PO SCH ×2 (09:34→23:06)
[2019-09-02] MEDS: LOPRESSOR PO SCH (09:35)
--- NOTE | 2019-09-02 09:49 | GENERAL SURGERY CONSULTATION ---
DATE: 09/02/2019 REASON FOR CONSULTATION: Small bowel obstruction. HISTORY OF PRESENT ILLNESS: This is a 54-year-old female with a history of multiple small-bowel obstructions, who presents with a 3-day history of progressively worsening mid upper abdominal pain with some episodes of nausea and vomiting. She did get some morphine in the hospital which has decreased her pain. She still has some nausea. Her last bowel movement was 3 days ago. She does report daily fairly constant supraumbilical pain that is mild, but this pain became significantly worse over the last 3 days. This is similar to a prior episode earlier this year where she was admitted for partial small bowel small bowel obstruction which resolved with conservative treatment. PAST MEDICAL HISTORY: Hypothyroidism, hypertension, rheumatoid arthritis, tremors, gastroparesis, thrombophilia, iron deficiency anemia and multiple small-bowel obstructions. PAST SURGICAL HISTORY: She had a in 1987, a hysterectomy, lysis of adhesions in 1998, exploratory laparotomy with lysis of adhesions in 1999, another exploratory laparotomy she thinks in 2001 and another exploratory laparotomy with small-bowel resection in 2009. She denies any further abdominal surgery since 2009. ALLERGIES: Betadine, ciprofloxacin, however, the Cipro only causes headache. Valium, which causes vomiting. Codeine, vomiting. Reglan, muscle jerks. Lortab, vomiting. Morphine, vomiting. Aleve nausea and vomiting. Mirapex swelling. Bactrim, vomiting. Keflex, rash. Doxycycline, rash. Nitrofurantoin, rash. Oxybutynin, rash. Phenergan, itching. Fentanyl, unknown. Levaquin, unknown Zosyn unknown. Of note she does report tolerating ciprofloxacin in the past, however, it did cause some headache. HOME MEDICATIONS: Amlodipine, levothyroxine, metoprolol, pantoprazole, mineral oil. SOCIAL HISTORY: Negative tobacco alcohol or illicit drug use. FAMILY HISTORY: Reviewed and noncontributory. REVIEW OF SYSTEMS: Ten systems reviewed and negative except as noted above. PHYSICAL EXAMINATION: Vital Signs: Temperature 97.6 degrees, pulse 48, respirations 20, blood pressure 131/67, O2 saturation 99%. General: Well-developed female in no distress who looks her stated age. HEENT: Normocephalic, atraumatic. Extraocular muscles intact. Pupils equal, round, reactive to light. Sclerae anicteric. Moist mucous membranes. Hearing grossly normal. No oral lesions. Neck: Supple, no thyromegaly. Lymph: No cervical, supraclavicular or periumbilical lymph nodes appreciated. CV: Regular rate and rhythm. Respiratory: Bilateral equal breath sounds. No work of breathing. Gastrointestinal: Soft, nondistended, mild tenderness in the upper abdomen. No rebound or guarding. No hernias, no mass. Extremities: No clubbing, cyanosis, or edema. Skin: Warm and dry. No rash. Musculoskeletal: Moves all extremities equally and well. LABORATORY: White blood cell count 11, hemoglobin 15, hematocrit 46. Electrolytes reviewed and unremarkable. Urinalysis reviewed, unremarkable. IMAGING: Abdominal and pelvis CT scan shows several mildly distended loops of small bowel with some mild fat stranding around it concerning for early obstruction. ASSESSMENT/PLAN: Fifty-two 54-year-old female with recurrent partial small-bowel obstruction. We will initially treat her conservatively initially. We will start ice chips, mineral oil and milk of magnesia and repeat physical exam and imaging. She understands if she does not improve, she will require another exploration. cc: Gregg Tirado MD
[2019-09-02] MEDS: MORPHINE IV PRN ×3 (13:37→23:07)
--- NOTE | 2019-09-02 15:14 | EKG Report ---
Test Performed on : 09/02/2019 2:02:11 PM Test Reason : Bradycardia Blood Pressure : / mmHG Vent. Rate : 049 BPM Atrial Rate : 049 BPM P-R Int : 160 ms QRS Dur : 092 ms QT Int : 494 ms P-R-T Axes : 032 -13 018 degrees QTc Int : 446 ms Critical Test Result: Low HR Sinus bradycardia. Possible Anterior infarct (cited on or before 19-NOV-2011) Abnormal ECG When compared with ECG of 10-AUG-2017 08:45, No significant change was found Confirmed by Zach Ronquillo MD ([id number]) on 09/02/2019 3:32:10 PM
[2019-09-02] MEDS ORDERED: LOVENOX SUBQ SCH (16:00)
--- NOTE | 2019-09-02 17:28 | PROGRESS NOTE ---
DATE: 09/02/2019 INTERVAL HISTORY: Ms. Díaz was admitted for nausea, vomiting, and abdominal pain. He was found to have partial small-bowel obstruction. SUBJECTIVE: She denies any new complaints. She is still feeling nauseous, though has not thrown up since last 6 to 8 hours. Her abdominal pain is slightly better, though she intermittently has cramping for which morphine has been ordered. VITALS: Temperature of 97.6 degrees, pulse 48, respiratory rate 20, blood pressure 130/63 and saturating 99% on room air. PHYSICAL EXAMINATION: General: Not in acute distress. HEENT: Oral cavity is moist. Lungs: Air entry bilaterally equal. No wheeze, rhonchi, or crackles. Cardiovascular: S1, S2 normal. No murmur or gallop. Abdomen: Soft. Tenderness in the supraumbilical region and left lower quadrant. She has bowel sounds. Extremities: No lower extremity edema. Neurologic: She is alert and oriented x3. LABORATORY: Labs are suggestive of mild leukocytosis. She has slightly elevated creatinine, which is pretty close to her baseline. Urinalysis was unremarkable. IMAGING: Abdomen and pelvis CT had small bowel wall thickening and stranding in the left mid abdomen suspicious for early obstruction, possibly due to radiation or internal hernia. EKG suggestive of sinus bradycardia. ASSESSMENT AND PLAN: 1. Small bowel obstruction likely adhesive small-bowel obstruction with prior history of hysterectomy, cholecystectomy, small bowel obstruction and resection. Surgical Team on board currently planning nonoperative management. She is not tachycardic, only has mild leukocytosis and her lactate is normal. The suspicion for ischemia or necrosis is low. I will continue her on intravenous fluids. Intravenous opioids as needed for pain. Follow up with abdominal examination, image and electrolytes tomorrow. She is no longer vomiting, and does not have an NG tube. I discussed with her about success of nonoperative management in general. 2. Bradycardia. She is not hypotensive. She is listed to be taking metoprolol, which is her home medication, which could contribute to her bradycardia. Continue to watch her and follow up with TSH tomorrow. 3. History of lupus anticoagulant and DVT's in the past. Continue her home fondaparinux. DISPOSITION: I will monitor patient inside the hospital. Plan of care discussed with her. Her questions have been answered. cc: Pranav Harkins MD
[2019-09-02] MEDS: ARIXTRA SUBQ SCH (18:44)
[2019-09-02] MEDS: NORVASC PO SCH (23:06)
[2019-09-03] MEDS: PROTONIX IV SCH (03:22)
[2019-09-03] MEDS: MINERAL OIL PO SCH ×3 (05:04→21:46)
[2019-09-03 06:28] LABS: BASO# 0.03 X1000 (0.0-0.2); BASO% 0.4 % (0.0-0.8); EOS# 0.11 X1000 (0.0-0.7); EOS% 1.4 % (0.0-10.0); HEMATOCRIT 44.7 % (37.0-47.0); HEMOGLOBIN 14.4 g/dL (12.0-16.0); IMM GRAN# 0.06 X1000 (0.0-0.04); IMM GRAN% 0.8 % (0.0-0.5); LYMPH# 2.02 X1000 (1.2-3.4); LYMPH% 25.6 % (20.5-51.1); MCH 29.4 PG (27-31); MCHC 32.2 g/dL (33-37); MCV 91.4 FL (81-99); MONO% 7.6 % (1.7-9.3); MPV 9.8 FL (7.4-10.4); NEUT# 5.06 X1000 (1.4-6.5); NEUT% 64.2 % (42.2-75.2); PLT 193 X1000 (130-400); RBC 4.89 XMIL (4.2-5.4); WBC 7.88 X1000 (4.8-10.8)
[2019-09-03] MEDS: SYNTHROID PO SCH (07:43)
[2019-09-03 08:07] LABS: CALCIUM 8.9 mg/dL (8.8-10.2)
--- NOTE | 2019-09-03 08:09 | Diag Imaging Result Doc PS360 ---
EXAM: FLAT/UPRIGHT ABD/1 VIEW CHEST 09/03/2019 HISTORY: sbo TECHNIQUE: Flat and upright abdomen with PA chest COMMENT: There is stool in the left colon and air-fluid levels in the right. The small bowel and colon are not distended and the stomach is not distended. There is no evidence of organomegaly or mass. There are phleboliths in the pelvis. There has been previous cholecystectomy. The appearance the chest is unremarkable. IMPRESSION: No evidence of small bowel obstruction. Electronically signed by Theodore Soto 09/03/2019 8:06 AM
[2019-09-03 08:26] LABS: POTASSIUM 4.5 mmol/L (3.5-5.1)
[2019-09-03] MEDS: ARIXTRA SUBQ SCH (09:00)
[2019-09-03] MEDS: MILK OF MAGNESIA PO SCH ×2 (09:00→21:48)
[2019-09-03] MEDS: LOPRESSOR PO SCH ×2 (09:00→09:02)
[2019-09-03] MEDS: ZOFRAN IV PRN ×3 (09:00→21:47)
[2019-09-03] MEDS: TYLENOL PO PRN ×2 (11:16→21:47)
--- NOTE | 2019-09-03 12:53 | GENERAL SURGERY PROGRESS NOTE ---
DATE: 09/03/2019 SUBJECTIVE: The patient continues to complain of some mild left-sided abdominal pain and nausea. She has passed some gas. OBJECTIVE: Vitals: She is afebrile. Vital signs are stable. General: She is awake, alert, and oriented x3, in no acute distress. GI: Soft. Mild tenderness on the left side. Nondistended. LAB: CBC and metabolic profile reviewed and unremarkable. IMAGING: Her abdominal flat and upright x-ray shows no evidence of small-bowel obstruction. There is stool in the left colon and air-fluid levels on the right. The small-bowel and colon are not distended. ASSESSMENT AND PLAN: A 54-year-old female with partial small-bowel obstruction, likely related to adhesions. This appears to be improved. We will start her on a clear liquid diet and then maintain a gentle bowel stimulation. cc: Gregg Tirado MD
--- NOTE | 2019-09-03 16:25 | PROGRESS NOTE ---
DATE: 09/03/2019 SUBJECTIVE: The patient seems to be doing better. She has been passing some gas. No bowel movement so far. She is still complaining of abdominal pain, mostly on the left side. No signs of peritoneal irritation. No rebound. OBJECTIVE: Vital Signs: Temperature 97.6 degrees, pulse 55, respiratory rate 20, blood pressure 139/77, oxygen saturation 100% on room air. HEENT: Head normocephalic. No trauma. PERRLA. Neck: Supple. No JVD. No masses. Central trachea. Chest: Clear to auscultation. No wheezing. No rales. Abdomen: Soft. Tender to palpation at the level of the left side of the abdomen, mostly left lower quadrant. She does have some bowel sounds. Extremities: No edema. No clubbing. No cyanosis. Neurological: This patient is alert and oriented x3. No focal deficits. LABORATORY: WBC 7.8, hemoglobin 14.4, hematocrit 44.7, platelets 193,000. Sodium 142, potassium 4.5, chloride 101, bicarbonate 18, BUN 11, creatinine 1, glucose 91, calcium 8.9. ASSESSMENT AND PLAN: 1. Small bowel obstruction in a patient with a history of hysterectomy, cholecystectomy and small bowel obstruction and resection. I think this is getting better. She has been placed on a liquid diet. Surgery Department on board. She is still complaining of some pain but the abdomen is not distended and she is passing gas. 2. Bradycardia, asymptomatic. She is on Lopressor which I will continue. I do not think this is new. 3. Thyroid-stimulating hormone is normal. 4. Hypothyroidism. Continue with Synthroid. 5. History of lupus anticoagulant and deep vein thrombosis in the past. For that, she is on Arixtra which I will continue. cc: Gil Shaikh MD
[2019-09-03] MEDS: NORVASC PO SCH (21:47)
[2019-09-04] MEDS: ZOFRAN IV PRN ×4 (01:53→22:22)
[2019-09-04] MEDS: SODIUM CHLORIDE 0.9% INJ SCH (01:53)
[2019-09-04] MEDS: MORPHINE IV PRN ×3 (01:53→22:22)
[2019-09-04] MEDS: PROTONIX IV SCH (01:53)
[2019-09-04] MEDS: SYNTHROID PO SCH (06:11)
[2019-09-04] MEDS: MILK OF MAGNESIA PO SCH ×2 (09:39→22:24)
[2019-09-04] MEDS: MINERAL OIL PO SCH ×2 (09:40→22:23)
[2019-09-04] MEDS: LOPRESSOR PO SCH ×2 (09:41→09:44)
[2019-09-04] MEDS: ARIXTRA SUBQ SCH (09:41)
[2019-09-04] MEDS ORDERED: DULCOLAX PR ONE (10:55)
[2019-09-04] MEDS ORDERED: MIRALAX PO ONE (10:55)
--- NOTE | 2019-09-04 12:13 | GENERAL SURGERY PROGRESS NOTE ---
DATE: 09/04/2019 SUBJECTIVE: The patient reports some mild epigastric and left-sided abdominal pain as she had before. It is not worsening. She gets a little nauseated with liquid intake, but is tolerating it without vomiting. She has passed gas, but no bowel movement. OBJECTIVE: Vital Signs: She is afebrile. Vital signs are stable. General: She is awake, alert, oriented x3. No acute distress. Gastrointestinal: Soft, nondistended. Mild tenderness in the epigastrium and left upper quadrant. No rebound or guarding. She does have bowel sounds. IMAGING: Pending. ASSESSMENT AND PLAN: A 54-year-old female with partial small-bowel obstruction, which radiographically has resolved. Clinically, she continues to have some pain and nausea, so we will slowly advance her diet, and continue bowel stimulation. cc: Gregg Tirado MD
--- NOTE | 2019-09-04 14:10 | PROGRESS NOTE ---
DATE: 09/04/2019 SUBJECTIVE: The patient seems to be getting better slowly. She is still passing gas but no bowel movement so far. She has a history also of gastroparesis. We had a large conversation about diet and gastroparesis, her diet has been advanced to full liquid diet. She has been bradycardic and it looks like now she says that she has been having some dizziness even before coming to the hospital and she believed that was related also to her iron deficiency anemia, but her hemoglobin is good as well as the MCV, so I will stop the beta joe and I will monitor. OBJECTIVE: Vital Signs: Temperature 98.3 degrees, pulse 65, respiratory rate 17, blood pressure 155/85, oxygen saturation 97% on room air. HEENT: Head normocephalic, no trauma. PERRLA. Neck: Supple. No JVD. No masses. Central trachea. Chest: Clear to auscultation. No wheezing. No rales. Abdomen: Soft. Some generalized tenderness to palpation, but no focalization, no rebound. Positive bowel sounds but decreased. Extremities: No edema, no clubbing, no cyanosis. Neurological: The patient is alert, she is oriented x3. No focal deficits. LABORATORY DATA: WBC 7.8, hemoglobin 14.4, hematocrit 44.7, platelets 193,000. Sodium 142, potassium 4.5, chloride 101, bicarbonate 18, BUN 11, creatinine 1, glucose 91, calcium 8.9. ASSESSMENT AND PLAN: 1. Small-bowel obstruction in a patient with history of hysterectomy, cholecystectomy and a small- bowel obstruction and resection before, also gastroparesis. I think this is getting better. She is passing gas. The diet has been advanced. I have recommended also to start walking more. 2. Bradycardia, it looks like this could be symptomatic. I have stopped the Lopressor for now. I will continue to monitor. 3. Hypothyroidism, TSH is normal. Continue with Synthroid. 4. History of lupus anticoagulant and deep venous thrombosis in the past. For that, she is on Arixtra which I will continue. cc: Gil Shaikh MD
[2019-09-04] MEDS: NORVASC PO SCH (22:23)
[2019-09-05] MEDS: PROTONIX IV SCH (04:26)
[2019-09-05] MEDS: ZOFRAN IV PRN ×2 (04:37→08:44)
[2019-09-05] MEDS: TYLENOL PO PRN (04:37)
--- NOTE | 2019-09-05 06:27 | GENERAL SURGERY PROGRESS NOTE ---
DATE: 09/05/2019 SUBJECTIVE: The patient feels better. She denies significant pain. No nausea or vomiting. She has had a bowel movement. She is tolerating liquids. OBJECTIVE: She is afebrile. Vital signs are stable.General: She is awake, alert, and oriented x3 in no acute distress. Gastrointestinal: Soft, nontender, and nondistended. She does have a few bowel sounds. ASSESSMENT AND PLAN: A 54-year-old female with partial small bowel obstruction which is much improved. We will order her a diet. If she tolerates this, she can be discharged home today. cc: Gregg Tirado MD
[2019-09-05] MEDS: SYNTHROID PO SCH (06:36)
[2019-09-05 07:21] LABS: CREATININE 1.1 mg/dL (0.5-0.9); POTASSIUM 4.4 mmol/L (3.5-5.1)
[2019-09-05] MEDS: MINERAL OIL PO SCH (08:47)
[2019-09-05] MEDS: ARIXTRA SUBQ SCH (08:47)
[2019-09-05] MEDS: MILK OF MAGNESIA PO SCH (08:47)
[2019-09-05 11:15] VITALS: BP 143/68
--- NOTE | 2019-09-05 21:36 | DISCHARGE SUMMARY ---
ADMISSION DATE: 09/01/2019 DISCHARGE DATE: 09/05/2019 DISCHARGE DIAGNOSES: 1. Small-bowel obstruction, resolved. 2. Gastroparesis. 3. Bradycardia, symptomatic with beta blockers. 4. Hypothyroidism. 5. History of lupus, anticoagulant and deep vein thrombosis on chronic anticoagulation. PROCEDURES PERFORMED: 1. Abdomen and pelvis CT scan dated 09/01/2019. Impression: Several mildly distended loops of small bowel and a few loops of small bowel, surrounding fat stranding and minor wall thickening at the left mid abdomen suspicious for early obstruction, possibly due to an adhesion or internal hernia. 2. Abdomen x-ray dated 09/03/2019. Impression: No evidence of small-bowel obstruction. HOSPITAL COURSE: A 54-year-old female with a past medical history of hypothyroidism, hypertension, rheumatoid arthritis, gastroparesis and thrombophilia, who presented to the emergency department with 3 days history of having persistent abdominal pain and some distention, cramping pain with nausea and vomiting. She was admitted on 09/02/2019. She was evaluated in the emergency department. CT showed the possibility of a small-bowel obstruction near the right mid abdominal anastomotic site. The case has been discussed with surgery who recommended admission for further treatment. At the time of admission, the patient denied any headache, fever, chills, chest pain, shortness of breath or weight changes, but she was complaining of abdominal pain. She was placed on the medical floor. We put this patient N.P.O.. We started this patient on antiemetics, pain control and IV fluids. Surgery evaluated this patient and followed this patient closely. The patient was improving on a daily basis. We did not stop the anticoagulation. Her nausea and vomiting stopped last Monday and she started passing gas also around Monday. Yesterday, it looks like she started having some bowel movements as well as today and she is able to tolerate her diet, which has been advanced slowly. I had a large conversation with the patient about her diet. I recommended a low amount of food multiple times a day given her gastroparesis. Today when she ate, she was able to tolerate that, but she was a little bit nauseated. I told her that she needs to go slow with her food and she needs to eat something less solid to start with. Also, we noticed during the course of her hospitalization that the heart rate he has been mostly in the 50s, and occasionally dropped to the 40s, mostly in the initial day of her hospitalization. That could represent a vasovagal episode due to the nausea and vomiting, but we also noticed that this patient was on beta blockers, and even though she was not having any kind of nausea and vomiting lately, her heart rate was dropping to the 50s. As per the patient, she has been having some dizziness at home, so I talked to her and I told her that she needs to see her conference assistant, so this doctor can be notified about the changes. Heart rate after stopping the beta blockers has been in the 50s and 70s and she seems to be more stable. since the obstruction resolved, this patient has been evaluated by Surgery Department and she will be discharged today. PHYSICAL EXAMINATION: Vital signs: Temperature 97.9 degrees, pulse 64, respiratory rate 14, blood pressure 143/68, oxygen saturation 99 on room air. HEENT: Head normocephalic, no trauma. PERRLA. Neck: Is supple. No JVD. No masses. Central trachea. Chest: Clear to auscultation. No wheezing. No rales. Abdomen: Soft, nontender, nondistended. No hepatosplenomegaly. Extremities: No edema, no clubbing, no cyanosis. Neurological: The patient is alert. She is oriented x3. No focal deficits. LABORATORY: Sodium 142, potassium 4.4, chloride 101, bicarbonate 28, BUN 6, creatinine 1.1, glucose 105, calcium 9. DISCHARGE MEDICATIONS: Amlodipine 2.5 mg p.o. at bedtime, Arixtra 7.5 mg subcutaneous daily, Synthroid 50 mcg p.o. q.a.m., mineral oil 30 mL p.o. b.i.d., and Protonix 40 mg p.o. b.i.d. FOLLOWUP: 1. Follow up with Dr. Storm, her gastroenterology department. As per the patient, she will call him for an appointment. 2. Follow up with the Hematology/Oncology department. Call for an appointment. 3. After discussion, this patient states that she will call her conference assistant to notify them about the changes and the heart rate. cc: Gil Shaikh MD MTDGarth
== END 2019-09-05 13:16 | disposition home or self-care (01) | DRG 389 ==
LOC: ED 19:26 → 4N 09-02 01:58 → SUATTDRO 09-02 01:58
PROVIDERS: ATTEND Internal Medicine